=== PATIENT | male | born 2000 | race Asian ===

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

== ENCOUNTER 2018-10-04 18:37 | Emergency (ER) | payer OTHER ==
[~2018-10-04] VITALS: Ht 185.4 cm; Wt 59.0 kg
[2018-10-04 21:56] VITALS: BP 158/90; TEMP 98.9
== END 2018-10-04 21:56 | disposition home or self-care (01) ==
LOC: ED 18:37
DX: S60.511A Abrasion of right hand, initial encounter (principal); S50.311A Abrasion of right elbow, initial encounter; S80.211A Abrasion, right knee, initial encounter; S50.312A Abrasion of left elbow, initial encounter; S60.512A Abrasion of left hand, initial encounter; S80.212A Abrasion, left knee, initial encounter; S90.512A Abrasion, left ankle, initial encounter; S90.511A Abrasion, right ankle, initial encounter; S82.64XA Nondisplaced fracture of lateral malleolus of right fibula, initial encounter for closed fracture; S93.492A Sprain of other ligament of left ankle, initial encounter; S93.491A Sprain of other ligament of right ankle, initial encounter; V86.56XA Driver of dirt bike or motor/cross bike injured in nontraffic accident, initial encounter; Y92.89 Other specified places as the place of occurrence of the external cause
CPT/HCPCS: 90471; 90715; 99284

== ENCOUNTER 2021-06-12 14:31 | Emergency (ER) | payer OTHER ==
[~2021-06-12] VITALS: Ht 185.4 cm; Wt 59.0 kg
[2021-06-12 14:35] VITALS: BP 125/67; TEMP 97.4
== END 2021-06-12 15:52 | disposition home or self-care (01) ==
LOC: ED 14:31
DX: S83.8X1A Sprain of other specified parts of right knee, initial encounter (principal); M25.461 Effusion, right knee; V86.96XA Unspecified occupant of dirt bike or motor/cross bike injured in nontraffic accident, initial encounter; Y92.89 Other specified places as the place of occurrence of the external cause
CPT/HCPCS: 99283

== ENCOUNTER 2021-11-29 17:14 | Emergency (ER) | payer OTHER ==
[~2021-11-29] VITALS: Ht 185.4 cm; Wt 59.0 kg
[2021-11-29 17:30] VITALS: BP 121/70; TEMP 99.2
== END 2021-11-29 18:28 | disposition home or self-care (01) ==
LOC: ED 17:14
DX: U07.1 COVID-19 (principal)
CPT/HCPCS: 87635; 99282; 99283; U0003